=== PATIENT | male | born 1995 | race Caucasian/White ===

== ENCOUNTER 2018-07-20 16:31 | Emergency (ER) | payer SELFPAY ==
[2018-07-20] MEDS ORDERED: DIPHTH,PERTUSS(ACELL),TET 0.5 ML DISP.SYRIN IM ONE (16:45)
[2018-07-20 16:46] VITALS: BP 140/80; PULSE 64; TEMP 98.3; BMI 32.3
--- NOTE | 2018-07-20 16:46 | PDOC ---
Rapid Medical Evaluation Time Seen by Provider: 07/20/18 16:38 Medical Evaluation: Allergies Allergy/AdvReac Type Severity Reaction Status Date / Time No Known Allergies Allergy Verified 07/20/18 16:39 07/20/18 16:43 Pt is a 23 y/o M who presents to the ED for a laceration to his L 2nd and 3rd fingers while cutting food. Pt presents to ED with a homemade tournequet which was placed approximately 20 minutes ago. Removed tournequet in triage. Does not remember last tetanus shot Exam: superficial lacerations to the Distal L 2nd and 3rd fingers. Orders: Boostrix Pt to proceed to ED for further evaluation Discharge Disposition - Diagnosis Laceration - Referrals - Patient Instructions - Post Discharge Activity
--- NOTE | 2018-07-20 17:17 | PDOC ---
History of Present Illness - General Chief Complaint: Laceration Stated Complaint: TWO LEFT FINGERS INJURY Time Seen by Provider: 07/20/18 16:38 - History of Present Illness Initial Comments: 23-year-old male without comorbidities unsure of his current tetanus presents for evaluation of lacerations on his left second and third finger after cutting food. 07/20/18 17:14 Past History - Past Medical History Allergies/Adverse Reactions: Allergies Allergy/AdvReac Type Severity Reaction Status Date / Time No Known Allergies Allergy Verified 07/20/18 16:39 Home Medications: Ambulatory Orders NK [No Known Home Medication] 07/20/18 COPD: No Other medical history: DENIES. - Suicide/Smoking/Psychosocial Hx Smoking History: Never smoked Review of Systems - Review of Systems Integumentary: Yes: See HPI All Other Systems: Reviewed and Negative *Physical Exam - Vital Signs Last Vital Signs Temp Pulse Resp BP Pulse Ox 98.3 F 64 19 140/80 99 07/20/18 16:39 07/20/18 16:39 07/20/18 16:39 07/20/18 16:39 07/20/18 16:39 - Physical Exam Comments: .There are 2 subcentimeter lacerations on the radial tips of the left second and third finger on the dorsum of the finger adjacent to the nail lacerations do not involve the nail there is no gross sensory motor deficit extensor and flexor tendon functions are preserved 07/20/18 17:14 Medical Decision Making - Medical Decision Making Under aseptic technique a digital block was into introduced into the second and third fingers this was tolerated well. The wounds were closed each with 4-0 nylon to sutures in each wound a DSD was placed 07/20/18 17:15 *DC/Admit/Observation/Transfer Diagnosis at time of Disposition: Laceration - Discharge Dispostion Disposition: HOME Condition at time of disposition: Stable Decision to Admit order: No - Referrals Referrals: Mario Pal MD [Staff Physician] - - Patient Instructions Printed Discharge Instructions: DI for Laceration Repair Additional Instructions: Return to the emergency room should you experience any drainage redness or swelling around the areas of the wound. Keep the dressing in place for 48 hours. After 48 hours urinary remove the dressing and wash her hand with soap and water and leave it open to air should wear a glove if you're working. Follow -up with hand surgery in 2-3 days for further evaluation and treatment options. Or return to the emergency room in 10 days for suture removal. - Post Discharge Activity
== END 2018-07-20 17:21 | disposition home or self-care (01) ==
LOC: JERFT 16:31
PROC: 0HQGXZZ Repair Left Hand Skin, External Approach (ICD-10-PCS; principal; 2018-07-20)
PROC: 3E0234Z Introduction of Serum, Toxoid and Vaccine into Muscle, Percutaneous Approach (ICD-10-PCS; 2018-07-20)
DX: S61.211A Laceration without foreign body of left index finger without damage to nail, initial encounter (principal); S61.213A Laceration without foreign body of left middle finger without damage to nail, initial encounter; W26.0XXA Contact with knife, initial encounter; Y93.G1 Activity, food preparation and clean up; Y92.030 Kitchen in apartment as the place of occurrence of the external cause; Y99.8 Other external cause status
CPT/HCPCS: 90715; 99281-25